=== PATIENT | male | born 1980 | race Hispanic/Latino ===

== ENCOUNTER 2019-01-27 16:55 | Emergency (ER) | payer MEDICARE ==
[~2019-01-27] VITALS: Ht 162.6 cm; Wt 64.9 kg
[2019-01-27 20:53] VITALS: BP 140/100
== END 2019-01-27 21:22 | disposition home or self-care (01) ==
LOC: ER 16:55
DX: M79.661 Pain in right lower leg (principal); L03.115 Cellulitis of right lower limb
CPT/HCPCS: 99282